=== PATIENT | male | born 1965 | race Caucasian/White ===

== ENCOUNTER → 2017-09-23 | Outpatient (CLI) | payer BC ==
[2017-09-23 09:20] LABS: HEMATOCRIT 41.3 % (42.0-52.0); HEMOGLOBIN 13.5 g/dL (13.5-18.0); MEAN CELL VOLUME 94 fl (78-100); MEAN CORPUSCULAR HEMOGLOBIN 31 pg (27-31); MEAN CORPUSCULAR HGB CONC 33 g/dL (33-37); MEAN PLATELET VOLUME 9.6 fl (7.4-10.4); PLATELET COUNT 191 K/mm3 (130-400); RED BLOOD COUNT 4.39 M/mm3 (4.20-5.60); RED CELL DISTRIBUTION WIDTH 13.2 % (11.5-14.5)
[2017-09-23 09:49] LABS: ALBUMIN 3.7 g/dL (3.5-5.0); BUN/CREATININE RATIO 16.1 (6.0-26.0); CALCIUM 8.9 mg/dL (8.4-10.2); POTASSIUM 4.4 mmol/L (3.6-5.0); TOTAL BILIRUBIN 0.4 mg/dL (0.2-1.3); TOTAL PROTEIN 6.5 g/dL (6.3-8.2)
[2017-09-23 10:18] LABS: EOS # 0.1 (0.04-0.40); EOS % 1.7 % (0.0-4.0); LYMPH# 1.4 (1.50-4.00); MONO # 0.5 (0.20-0.80); NEU # 2.1 (1.40-6.50)
[2017-09-23 11:31] LABS: ERYTHROCYTE SEDIMENTATION RATE 1 mm/hr (0-20)
[2017-09-23 12:48] LABS: URINE APPEARANCE CLEAR; URINE COLOR YELLOW
[2017-09-23 12:49] LABS: URINE BILIRUBIN NEGATIVE (NEGATIVE); URINE BLOOD NEGATIVE (NEGATIVE); URINE GLUCOSE NEGATIVE (NEGATIVE); URINE KETONE NEGATIVE (NEGATIVE); URINE LEUKOCYTE ESTERASE NEGATIVE (NEGATIVE); URINE NITRATE NEGATIVE (NEGATIVE); URINE PROTEIN(semi-quant) NEGATIVE (NEGATIVE); URINE UROBILINOGEN NORMAL (NORMAL)
[2017-09-24 00:17] LABS: TESTOSTERONE 402 ng/dL (221-716)
== END ==
LOC: LAB 09:06
PROVIDERS: Internal Medicine
DX: Z00.00 Encounter for general adult medical examination without abnormal findings (principal); Z12.5 Encounter for screening for malignant neoplasm of prostate; Z12.11 Encounter for screening for malignant neoplasm of colon

== ENCOUNTER → 2018-08-21 | Outpatient (CLI) | payer BC ==
[2018-08-21 12:37] LABS: HEMATOCRIT 41.7 % (42.0-52.0); HEMOGLOBIN 14.5 g/dL (13.5-18.0); MEAN CELL VOLUME 92 fl (78-100); MEAN CORPUSCULAR HEMOGLOBIN 32 pg (27-31); MEAN CORPUSCULAR HGB CONC 35 g/dL (33-37); MEAN PLATELET VOLUME 9.3 fl (7.4-10.4); PLATELET COUNT 227 K/mm3 (130-400); RED BLOOD COUNT 4.53 M/mm3 (4.20-5.60); RED CELL DISTRIBUTION WIDTH 12.4 % (11.5-14.5); WHITE BLOOD COUNT 3.8 K/mm3 (4.8-10.8)
[2018-08-21 12:59] LABS: ALBUMIN 4.3 g/dL (3.5-5.0); CALCIUM 9.7 mg/dL (8.4-10.2); POTASSIUM 3.8 mmol/L (3.6-5.0); TOTAL BILIRUBIN 0.8 mg/dL (0.2-1.3)
[2018-08-21 13:26] LABS: LYMPHOCYTE 38 % (20-51); MONOCYTE 11 % (3-10); NEUTROPHILS 47 % (42-75)
[2018-08-21 13:52] LABS: ERYTHROCYTE SEDIMENTATION RATE 0 mm/hr (0-20)
== END ==
LOC: LAB 12:24
PROVIDERS: Internal Medicine
DX: Z00.00 Encounter for general adult medical examination without abnormal findings (principal)

== ENCOUNTER → 2019-03-23 | Outpatient (CLI) | payer BC | LOC: RAD 08:28 | DX: M25.551 Pain in right hip (principal) ==

== ENCOUNTER → 2019-09-16 | Outpatient (CLI) | payer BC | LOC: RAD 18:18 | DX: R05 Cough (principal) ==

== ENCOUNTER → 2019-09-28 | Outpatient (CLI) | payer BC ==
[2019-09-28 09:27] LABS: ALBUMIN 3.9 g/dL (3.5-5.0); POTASSIUM 4.6 mmol/L (3.5-5.1)
[2019-09-28 09:28] LABS: CALCIUM 9.4 mg/dL (8.3-10.5)
[2019-09-28 09:30] LABS: TOTAL PROTEIN 6.2 g/dL (6.4-8.3)
[2019-09-28 09:31] LABS: TOTAL BILIRUBIN 0.4 mg/dL (0.2-1.2)
[2019-09-28 09:36] LABS: MAGNESIUM 1.74 mg/dL (1.60-2.60)
[2019-09-28 09:37] LABS: EOS # 0.1 (0.04-0.40); EOS % 2.9 % (0.0-4.0); HEMATOCRIT 42.6 % (42.0-52.0); HEMOGLOBIN 13.9 g/dL (13.5-18.0); LYMPH# 1.3 (1.50-4.00); MEAN CELL VOLUME 93 fl (78-100); MEAN CORPUSCULAR HEMOGLOBIN 30 pg (27-31); MEAN CORPUSCULAR HGB CONC 33 g/dL (33-37); MEAN PLATELET VOLUME 9.2 fl (7.4-10.4); MONO # 0.4 (0.20-0.80); NEU # 1.6 (1.40-6.50); PLATELET COUNT 287 K/mm3 (130-400); RED CELL DISTRIBUTION WIDTH 13.6 % (11.5-14.5); WHITE BLOOD COUNT 3.5 K/mm3 (4.8-10.8)
[2019-09-28 10:07] LABS: URINE APPEARANCE CLEAR; URINE BILIRUBIN NEGATIVE (NEGATIVE); URINE BLOOD NEGATIVE (NEGATIVE); URINE COLOR YELLOW; URINE GLUCOSE NEGATIVE (NEGATIVE); URINE KETONE NEGATIVE (NEGATIVE); URINE NITRATE NEGATIVE (NEGATIVE); URINE PROTEIN(semi-quant) NEGATIVE (NEGATIVE); URINE UROBILINOGEN NORMAL (NORMAL)
[2019-09-28 10:08] LABS: URINE LEUKOCYTE ESTERASE NEGATIVE (NEGATIVE); URINE WBC 0-1 /hpf (0-3)
[2019-09-28 10:21] LABS: ERYTHROCYTE SEDIMENTATION RATE 1 mm/hr (0-20)
== END ==
LOC: LAB 08:59
PROVIDERS: Internal Medicine
DX: Z00.00 Encounter for general adult medical examination without abnormal findings (principal); Z12.5 Encounter for screening for malignant neoplasm of prostate; Z12.11 Encounter for screening for malignant neoplasm of colon

== ENCOUNTER → 2020-10-18 | Outpatient (CLI) | payer BC ==
[2020-10-18 10:17] LABS: HEMATOCRIT 40.9 % (42.0-52.0); HEMOGLOBIN 13.7 g/dL (13.5-18.0); MEAN CELL VOLUME 93 fl (78-100); MEAN CORPUSCULAR HEMOGLOBIN 31 pg (27-31); MEAN CORPUSCULAR HGB CONC 34 g/dL (33-37); MEAN PLATELET VOLUME 9.1 fl (7.4-10.4); PLATELET COUNT 256 K/mm3 (130-400); RED BLOOD COUNT 4.42 M/mm3 (4.20-5.60); RED CELL DISTRIBUTION WIDTH 12.5 % (11.5-14.5); WHITE BLOOD COUNT 3.7 K/mm3 (4.8-10.8)
[2020-10-18 10:20] LABS: POTASSIUM 4.2 mmol/L (3.5-5.1)
[2020-10-18 10:21] LABS: CALCIUM 8.9 mg/dL (8.3-10.5)
[2020-10-18 10:22] LABS: TOTAL PROTEIN 6.4 g/dL (6.4-8.3)
[2020-10-18 10:24] LABS: TOTAL BILIRUBIN 0.4 mg/dL (0.2-1.2)
[2020-10-18 10:56] LABS: LYMPHOCYTE 35 % (20-51); MONOCYTE 6 % (3-10); NEUTROPHILS 55 % (42-75)
== END ==
LOC: LAB 10:01
PROVIDERS: Internal Medicine
DX: Z00.00 Encounter for general adult medical examination without abnormal findings (principal); Z12.5 Encounter for screening for malignant neoplasm of prostate; Z12.11 Encounter for screening for malignant neoplasm of colon

== ENCOUNTER → 2020-12-29 | Outpatient (CLI) | payer BC | LOC: RAD 20:30 | DX: M48.061 Spinal stenosis, lumbar region without neurogenic claudication (principal); M48.07 Spinal stenosis, lumbosacral region; M47.26 Other spondylosis with radiculopathy, lumbar region ==

== ENCOUNTER → 2021-04-10 | Outpatient (CLI) | payer BC | LOC: RAD 14:30 | DX: M43.17 Spondylolisthesis, lumbosacral region (principal); M41.86 Other forms of scoliosis, lumbar region; M47.816 Spondylosis without myelopathy or radiculopathy, lumbar region ==

== ENCOUNTER → 2021-09-15 | Outpatient (CLI) | payer BC ==
[2021-09-15 10:22] LABS: BASO # 0.03 K/mm3 (0.02-0.10); EOS # 0.11 K/mm3 (0.04-0.40); EOS % 2.6 % (0.0-4.0); HEMATOCRIT 42.5 % (42.0-52.0); HEMOGLOBIN 14.1 g/dL (13.5-18.0); LYMPH# 1.16 K/mm3 (1.50-4.00); MEAN CELL VOLUME 94 fl (78-100); MEAN CORPUSCULAR HEMOGLOBIN 31 pg (27-31); MEAN CORPUSCULAR HGB CONC 33 g/dL (33-37); MEAN PLATELET VOLUME 9.1 fl (7.4-10.4); MONO # 0.49 K/mm3 (0.20-0.80); NEU # 2.37 K/mm3 (1.40-6.50); PLATELET COUNT 261 K/mm3 (130-400); RED BLOOD COUNT 4.52 M/mm3 (4.20-5.60); RED CELL DISTRIBUTION WIDTH 12.9 % (11.5-14.5); WHITE BLOOD COUNT 4.2 K/mm3 (4.8-10.8)
[2021-09-15 10:31] LABS: POTASSIUM 4.4 mmol/L (3.5-5.1)
[2021-09-15 10:32] LABS: CALCIUM 9.5 mg/dL (8.3-10.5)
[2021-09-15 10:33] LABS: TOTAL PROTEIN 6.5 g/dL (6.4-8.3)
[2021-09-15 10:35] LABS: TOTAL BILIRUBIN 0.5 mg/dL (0.2-1.2)
[2021-09-15 11:43] LABS: URINE APPEARANCE CLEAR
[2021-09-15 11:44] LABS: URINE BILIRUBIN NEGATIVE (NEGATIVE); URINE BLOOD NEGATIVE (NEGATIVE); URINE COLOR YELLOW; URINE GLUCOSE NEGATIVE (NEGATIVE); URINE KETONE NEGATIVE (NEGATIVE); URINE LEUKOCYTE ESTERASE NEGATIVE (NEGATIVE); URINE NITRATE NEGATIVE (NEGATIVE); URINE PROTEIN(semi-quant) TRACE (NEGATIVE); URINE UROBILINOGEN NORMAL (NORMAL)
[2021-09-15 11:45] LABS: URINE WBC 0-1 /hpf (0-3)
== END ==
LOC: LAB 09:52
PROVIDERS: Internal Medicine
DX: Z00.00 Encounter for general adult medical examination without abnormal findings (principal); Z12.5 Encounter for screening for malignant neoplasm of prostate; Z12.11 Encounter for screening for malignant neoplasm of colon; F98.8 Other specified behavioral and emotional disorders with onset usually occurring in childhood and adolescence; M54.16 Radiculopathy, lumbar region

== ENCOUNTER → 2024-03-27 | Outpatient (CLI) | payer BC | LOC: LAB 08:43 | DX: Z01.811 Encounter for preprocedural respiratory examination (principal); Z01.810 Encounter for preprocedural cardiovascular examination; Z01.818 Encounter for other preprocedural examination ==

== ENCOUNTER → 2024-05-01 | Outpatient (CLI) | payer BC ==
[2024-05-01 08:45] LABS: BASO # 0.04 K/mm3 (0.02-0.10); EOS # 0.23 K/mm3 (0.04-0.40); EOS % 4.3 % (0.0-4.0); HEMATOCRIT 45.4 % (42.0-52.0); HEMOGLOBIN 15.2 g/dL (13.5-18.0); LYMPH# 1.49 K/mm3 (1.50-4.00); MEAN CELL VOLUME 94 fl (78-100); MEAN CORPUSCULAR HEMOGLOBIN 31 pg (27-31); MEAN CORPUSCULAR HGB CONC 34 g/dL (33-37); MONO # 0.72 K/mm3 (0.20-0.80); NEU # 2.86 K/mm3 (1.40-6.50); PLATELET COUNT 247 K/mm3 (130-400); RED BLOOD COUNT 4.84 M/mm3 (4.20-5.60); RED CELL DISTRIBUTION WIDTH 12.8 % (11.5-14.5); WHITE BLOOD COUNT 5.4 K/mm3 (4.8-10.8)
[2024-05-01 08:56] LABS: ALBUMIN 4.2 g/dL (3.5-5.0); URINE WBC 0 /hpf (0-3)
[2024-05-01 08:57] LABS: CALCIUM 10.2 mg/dL (8.3-10.5)
[2024-05-01 08:59] LABS: TOTAL PROTEIN 6.5 g/dL (6.4-8.3)
[2024-05-01 09:00] LABS: TOTAL BILIRUBIN 0.6 mg/dL (0.2-1.2)
[2024-05-01 09:05] LABS: MAGNESIUM 1.63 mg/dL (1.60-2.60)
[2024-05-01 09:31] LABS: PROTHROMBIN TIME 10.4 SECONDS (9.0-12.0)
[2024-05-01 10:00] LABS: PH-URINE 5.5 (5.0 - 8.0); URINE APPEARANCE CLEAR (CLEAR); URINE COLOR YELLOW (YELLOW)
[2024-05-01 10:01] LABS: URINE BILIRUBIN NEGATIVE (NEGATIVE); URINE BLOOD NEGATIVE (NEGATIVE); URINE GLUCOSE NEGATIVE (NEGATIVE); URINE KETONE TRACE (NEGATIVE); URINE LEUKOCYTE ESTERASE NEGATIVE (NEGATIVE); URINE NITRATE NEGATIVE (NEGATIVE); URINE PROTEIN(semi-quant) NEGATIVE (NEGATIVE)
== END ==
LOC: LAB 08:20
PROVIDERS: Internal Medicine
DX: Z01.818 Encounter for other preprocedural examination (principal); Z12.5 Encounter for screening for malignant neoplasm of prostate; E78.2 Mixed hyperlipidemia; K90.9 Intestinal malabsorption, unspecified

== ENCOUNTER → 2024-05-01 | Outpatient (CLI) | payer BC ==
[~2024-05-01] VITALS: Ht 172.7 cm; Wt 84.4 kg
== END ==
LOC: CARDREHAB 08:39
DX: R06.00 Dyspnea, unspecified (principal)
CPT/HCPCS: A9500

== ENCOUNTER → 2024-07-03 | Outpatient (CLI) | payer BC, OTHER | LOC: RAD 11:13 | DX: M43.16 Spondylolisthesis, lumbar region (principal); M47.816 Spondylosis without myelopathy or radiculopathy, lumbar region ==

== ENCOUNTER → 2024-07-27 | Outpatient (CLI) | payer BC, OTHER ==
[2024-07-27 13:46] LABS: BASO # 0.05 K/mm3 (0.02-0.10); EOS # 0.22 K/mm3 (0.04-0.40); EOS % 2.9 % (0.0-4.0); HEMATOCRIT 37.5 % (42.0-52.0); HEMOGLOBIN 11.7 g/dL (13.5-18.0); LYMPH# 1.62 K/mm3 (1.50-4.00); MEAN CELL VOLUME 84 fl (78-100); MEAN CORPUSCULAR HEMOGLOBIN 26 pg (27-31); MEAN CORPUSCULAR HGB CONC 31 g/dL (33-37); MEAN PLATELET VOLUME 8.2 fl (7.4-10.4); MONO # 0.67 K/mm3 (0.20-0.80); PLATELET COUNT 341 K/mm3 (130-400); RED BLOOD COUNT 4.46 M/mm3 (4.20-5.60); WHITE BLOOD COUNT 7.5 K/mm3 (4.8-10.8)
[2024-07-27 13:55] LABS: ALBUMIN 4.2 g/dL (3.5-5.0)
[2024-07-27 13:56] LABS: CALCIUM 9.5 mg/dL (8.3-10.5)
[2024-07-27 13:57] LABS: TOTAL PROTEIN 6.8 g/dL (6.4-8.3)
[2024-07-27 13:59] LABS: TOTAL BILIRUBIN 0.4 mg/dL (0.2-1.2)
[2024-07-27 14:04] LABS: MAGNESIUM 1.78 mg/dL (1.60-2.60)
== END ==
LOC: LAB 13:27
PROVIDERS: Internal Medicine
DX: Z12.11 Encounter for screening for malignant neoplasm of colon (principal); I10 Essential (primary) hypertension; K90.9 Intestinal malabsorption, unspecified; E78.2 Mixed hyperlipidemia